=== PATIENT | female | born 1965 | race Caucasian/White ===

== ENCOUNTER 2017-07-23 14:36 | Inpatient (IN) | payer OTHER ==
[2017-07-23] MEDS: CEFTRIAXONE 1 GM/50 ML (PMX) 50 ML IVPB (15:26)
[2017-07-23 15:40] LABS: ADD MAN DIFF? NO
[2017-07-23] MEDS: SOD CHLORIDE 0.9% 1,000 ML IV (15:41)
[2017-07-23] MEDS: morphine 4 MG/ML VIAL IV (15:41)
[2017-07-23] MEDS: ONDANSETRON 4 MG INJ IV (15:41)
[2017-07-23 15:43] LABS: WHITE BLOOD COUNT 9.4 10^3/ul (4.8-10.8)
[2017-07-23 15:43] LABS: BASOPHILS % 0.4 % (0.0-2.0); EOSINOPHILS # 0.1 10^3/ul (0.0-0.5); EOSINOPHILS % 0.6 % (0.0-7.0); HEMATOCRIT 37.8 % (37.0-47.0); HEMOGLOBIN 12.4 g/dl (12.0-16.0); LYMPHOCYTES # 3.2 10^3/ul (0.8-2.9); LYMPHOCYTES % 34.4 % (15.0-51.0); MEAN CORPUSCULAR HEMOGLOBIN 28.8 pg (29.0-33.0); MEAN CORPUSCULAR HGB CONC 32.8 g/dl (32.0-37.0); MEAN CORPUSCULAR VOLUME 87.7 fl (82.0-101.0); MEAN PLATELET VOLUME 10.8 fl (7.4-10.4); MONOCYTE # 0.6 10^3/ul (0.3-0.9); MONOCYTES % 5.9 % (0.0-11.0); NEUTROPHIL # 5.5 10^3/ul (1.6-7.5); NEUTROPHILS % 58.4 % (39.0-77.0); PLATELET COUNT 276 10^3/UL (140-415); RED BLOOD COUNT 4.31 10^6/ul (4.20-5.40); RED CELL DISTRIBUTION WIDTH 16.7 % (11.5-14.5)
[2017-07-23 16:02] LABS: ALANINE AMINOTRANSFERASE 17 IU/L (13-69); ALBUMIN/GLOBULIN RATIO 1.14; ALKALINE PHOSPHATASE 63 IU/L (42-121); ANION GAP 14 (8-16); ASPARTATE AMINO TRANSFERASE 18 IU/L (15-46); BILIRUBIN,INDIRECT 0.3 mg/dl (0-1.1); BILIRUBIN,TOTAL 0.3 mg/dl (0.2-1.3); BLOOD UREA NITROGEN 12 mg/dl (7-20); CALCIUM 9.2 mg/dl (8.4-10.2); CARBON DIOXIDE 26 mmol/L (21-31); CHLORIDE 105 mmol/L (97-110); GLUCOSE 97 mg/dl (70-220); INR 1.01; LIPASE 157 U/L (23-300); POTASSIUM 3.5 mmol/L (3.5-5.1); PROTIME 13.4 Sec (11.9-14.9); SODIUM 141 mmol/L (135-144); TOTAL PROTEIN 7.5 g/dl (6.1-8.1)
[2017-07-23 16:03] LABS: PARTIAL THROMBOPLASTIN TIME 26.3 Sec (25.0-35.0)
[2017-07-23] MEDS: metroNIDAZOLE 500 MG/NS (PMX) 100 ML IVPB (16:05)
[2017-07-23 17:51] LABS: ADD UMIC YES; UR ASCORBIC ACID NEGATIVE (NEGATIVE); UR BACTERIA FEW /HPF (NONE SEEN); UR BILIRUBIN (Dip) NEGATIVE (NEGATIVE); UR BLOOD (Dip) 3+ mg/dL (NEGATIVE); UR CLARITY CLEAR (CLEAR); UR COLOR RED (YELLOW); UR GLUCOSE (Dip) NEGATIVE (NEGATIVE); UR KETONES (Dip) NEGATIVE (NEGATIVE); UR LEUKOCYTE ESTERASE (Dip) TRACE Leu/ul (NEGATIVE); UR NITRITE (Dip) NEGATIVE (NEGATIVE); UR RBC 89 /HPF (0-5); UR SPECIFIC GRAVITY (Dip) 1.006 (1.003-1.030); UR SQUAMOUS EPITHELIAL CELL MODERATE /HPF (FEW); UR TOTAL PROTEIN (Dip) 1+ mg/dl (NEGATIVE); UR UROBILINOGEN (Dip) NEGATIVE (NEGATIVE); UR WBC 137 /HPF (0-5)
[2017-07-23] MEDS ORDERED: ACETAMINOPHEN 1000MG/100ML IV 100 ML IVPB (20:00)
[2017-07-23] MEDS ORDERED: ACETAMINOPHEN (10 MG/ML) IV SYG IV* (20:00)
[2017-07-23] MEDS: D5W-0.45 NACL + KCL 20 MEQ 1,000 ML IV (20:42)
[2017-07-23] MEDS: morphine 2 MG INJ IV (20:46)
[2017-07-23] MEDS: PIPER-TAZO 3.375 GM IV (PMX) 100 ML IVPB (22:24)
[2017-07-23] MEDS: ZOLPIDEM 5 MG TAB PO (23:08)
[2017-07-24] MEDS: PIPER-TAZO 3.375 GM IV (PMX) 100 ML IVPB (05:40)
[2017-07-24] MEDS: D5W-0.45 NACL + KCL 20 MEQ 1,000 ML IV ×3 (06:00→22:10)
[2017-07-24 06:04] LABS: ADD MAN DIFF? NO
[2017-07-24 06:09] LABS: BASOPHILS % 0.7 % (0.0-2.0); EOSINOPHILS # 0.1 10^3/ul (0.0-0.5); EOSINOPHILS % 2.1 % (0.0-7.0); HEMATOCRIT 32.1 % (37.0-47.0); HEMOGLOBIN 10.5 g/dl (12.0-16.0); LYMPHOCYTES # 2.9 10^3/ul (0.8-2.9); LYMPHOCYTES % 51.4 % (15.0-51.0); MEAN CORPUSCULAR HEMOGLOBIN 28.5 pg (29.0-33.0); MEAN CORPUSCULAR HGB CONC 32.7 g/dl (32.0-37.0); MEAN CORPUSCULAR VOLUME 87.2 fl (82.0-101.0); MEAN PLATELET VOLUME 10.8 fl (7.4-10.4); MONOCYTE # 0.4 10^3/ul (0.3-0.9); MONOCYTES % 7.1 % (0.0-11.0); NEUTROPHIL # 2.2 10^3/ul (1.6-7.5); NEUTROPHILS % 38.5 % (39.0-77.0); PLATELET COUNT 230 10^3/UL (140-415); RED BLOOD COUNT 3.68 10^6/ul (4.20-5.40)
[2017-07-24 06:09] LABS: WHITE BLOOD COUNT 5.7 10^3/ul (4.8-10.8)
[2017-07-24 06:35] LABS: ALANINE AMINOTRANSFERASE 22 IU/L (13-69); ALBUMIN 2.8 g/dl (3.3-4.9); ALBUMIN/GLOBULIN RATIO 0.96; ALKALINE PHOSPHATASE 41 IU/L (42-121); ANION GAP 5 (8-16); ASPARTATE AMINO TRANSFERASE 23 IU/L (15-46); BILIRUBIN,INDIRECT 0.4 mg/dl (0-1.1); BILIRUBIN,TOTAL 0.4 mg/dl (0.2-1.3); BLOOD UREA NITROGEN 8 mg/dl (7-20); CALCIUM 7.8 mg/dl (8.4-10.2); CARBON DIOXIDE 26 mmol/L (21-31); CHLORIDE 112 mmol/L (97-110); CREATININE 0.56 mg/dl (0.44-1.00); GLUCOSE 93 mg/dl (70-220); POTASSIUM 3.9 mmol/L (3.5-5.1); SODIUM 139 mmol/L (135-144); TOTAL PROTEIN 5.7 g/dl (6.1-8.1)
[2017-07-24] MEDS ORDERED: LIDOCAINE 2% (SDV) 5 ML INJ (06:54)
[2017-07-24] MEDS ORDERED: PROPOFOL 20 ML (06:54)
[2017-07-24] MEDS ORDERED: DEXAMETHASONE 4 MG/ML 1 ML INJ (06:55)
[2017-07-24] MEDS ORDERED: ROCURONIUM 50 MG INJ ×2 (06:55→07:00)
[2017-07-24] MEDS ORDERED: ONDANSETRON 4 MG INJ (06:56)
[2017-07-24] MEDS ORDERED: FENTAnyl 50 MCG/ML VIAL (06:56)
[2017-07-24] MEDS ORDERED: SUGAMMADEX SODIUM 200 MG/2 ML VIAL IV (06:59)
[2017-07-24] MEDS ORDERED: CEFAZOLIN 1 GM INJ (07:01)
[2017-07-24] MEDS ORDERED: MIDAZOLAM 1 MG/ML 2 ML INJ (07:53)
[2017-07-24] MEDS: BUPIVACAINE 0.25%/EPI (MDV) 50 ML VIAL INJ (08:16)
[2017-07-24] MEDS: LIDOCAINE 1% (MPF) 30 ML INJ (08:17)
[2017-07-24] MEDS ORDERED: ROPIVACAINE 0.5 % 30 ML VIAL (09:35)
[2017-07-24] MEDS ORDERED: GLYCOPYRROLATE 1 MG INJ (09:57)
[2017-07-24] MEDS ORDERED: NEOSTIGMINE 3 MG/3 ML SYRINGE (09:57)
[2017-07-24] MEDS ORDERED: MEPERIDINE 25 MG INJ IV (10:30)
[2017-07-24] MEDS ORDERED: METOCLOPRAMIDE 10 MG INJ IV (10:30)
[2017-07-24] MEDS ORDERED: FENTAnyl 50 MCG/ML VIAL IV (10:30)
[2017-07-24] MEDS ORDERED: HYDROmorphONE 1 MG/5 ML IV SYRINGE IV (10:30)
[2017-07-24] MEDS ORDERED: DIPHENHYDRAMINE 50 MG INJ IV (10:30)
[2017-07-24] MEDS: HYDROmorphONE 1 MG/5 ML IV SYRINGE IV (10:54)
[2017-07-24] MEDS: ONDANSETRON 4 MG INJ IV ×2 (10:55→16:14)
[2017-07-24] MEDS: morphine 2 MG INJ IV ×2 (11:33→13:56)
[2017-07-24] MEDS: morphine LIQ (10 MG/5 ML) CUP PO ×2 (18:21→20:36)
[2017-07-24] MEDS: ZOLPIDEM 5 MG TAB PO (22:10)
[2017-07-25] MEDS: D5W-0.45 NACL + KCL 20 MEQ 1,000 ML IV ×3 (02:00→18:33)
[2017-07-25] MEDS: morphine LIQ (10 MG/5 ML) CUP PO ×2 (05:56→14:43)
[2017-07-25 06:17] LABS: ADD MAN DIFF? NO
[2017-07-25 06:29] LABS: BASOPHILS % 0.1 % (0.0-2.0); EOSINOPHILS % 0.1 % (0.0-7.0); HEMATOCRIT 34.7 % (37.0-47.0); HEMOGLOBIN 11.3 g/dl (12.0-16.0); MEAN CORPUSCULAR HEMOGLOBIN 28.4 pg (29.0-33.0); MEAN CORPUSCULAR HGB CONC 32.6 g/dl (32.0-37.0); MEAN CORPUSCULAR VOLUME 87.2 fl (82.0-101.0); MEAN PLATELET VOLUME 10.7 fl (7.4-10.4); MONOCYTE # 0.7 10^3/ul (0.3-0.9); MONOCYTES % 8.3 % (0.0-11.0); NEUTROPHIL # 6.2 10^3/ul (1.6-7.5); NEUTROPHILS % 69.2 % (39.0-77.0); PLATELET COUNT 262 10^3/UL (140-415); RED BLOOD COUNT 3.98 10^6/ul (4.20-5.40); RED CELL DISTRIBUTION WIDTH 17.2 % (11.5-14.5)
[2017-07-25 06:29] LABS: WHITE BLOOD COUNT 8.9 10^3/ul (4.8-10.8)
[2017-07-25 06:45] LABS: ANION GAP 10 (8-16); BLOOD UREA NITROGEN 3 mg/dl (7-20); CALCIUM 8.2 mg/dl (8.4-10.2); CARBON DIOXIDE 27 mmol/L (21-31); CHLORIDE 108 mmol/L (97-110); CREATININE 0.54 mg/dl (0.44-1.00); GLUCOSE 111 mg/dl (70-220); POTASSIUM 4.3 mmol/L (3.5-5.1); SODIUM 141 mmol/L (135-144)
[2017-07-26] MEDS: D5W-0.45 NACL + KCL 20 MEQ 1,000 ML IV ×2 (04:14→08:00)
[2017-07-26 05:49] LABS: WHITE BLOOD COUNT 8.6 10^3/ul (4.8-10.8)
[2017-07-26 05:49] LABS: ADD MAN DIFF? NO; BASOPHIL # 0.1 10^3/ul (0.0-0.1); BASOPHILS % 0.7 % (0.0-2.0); EOSINOPHILS # 0.1 10^3/ul (0.0-0.5); EOSINOPHILS % 1.5 % (0.0-7.0); HEMATOCRIT 33.8 % (37.0-47.0); HEMOGLOBIN 10.7 g/dl (12.0-16.0); LYMPHOCYTES # 4.6 10^3/ul (0.8-2.9); LYMPHOCYTES % 53.7 % (15.0-51.0); MEAN CORPUSCULAR HGB CONC 31.7 g/dl (32.0-37.0); MEAN CORPUSCULAR VOLUME 88.5 fl (82.0-101.0); MEAN PLATELET VOLUME 10.5 fl (7.4-10.4); MONOCYTE # 0.6 10^3/ul (0.3-0.9); MONOCYTES % 6.7 % (0.0-11.0); NEUTROPHIL # 3.2 10^3/ul (1.6-7.5); NEUTROPHILS % 37.1 % (39.0-77.0); PLATELET COUNT 244 10^3/UL (140-415); RED BLOOD COUNT 3.82 10^6/ul (4.20-5.40)
[2017-07-26 06:17] LABS: ALANINE AMINOTRANSFERASE 34 IU/L (13-69); ALBUMIN 3.3 g/dl (3.3-4.9); ALKALINE PHOSPHATASE 47 IU/L (42-121); ANION GAP 8 (8-16); ASPARTATE AMINO TRANSFERASE 27 IU/L (15-46); BILIRUBIN,INDIRECT 0.5 mg/dl (0-1.1); BILIRUBIN,TOTAL 0.5 mg/dl (0.2-1.3); BLOOD UREA NITROGEN 4 mg/dl (7-20); CALCIUM 8.4 mg/dl (8.4-10.2); CARBON DIOXIDE 29 mmol/L (21-31); CHLORIDE 110 mmol/L (97-110); CREATININE 0.58 mg/dl (0.44-1.00); GLUCOSE 84 mg/dl (70-220); POTASSIUM 4.7 mmol/L (3.5-5.1); SODIUM 142 mmol/L (135-144); TOTAL PROTEIN 6.6 g/dl (6.1-8.1)
[2017-07-26] MEDS: morphine LIQ (10 MG/5 ML) CUP PO (07:54)
== END 2017-07-26 16:40 | disposition home or self-care (01) | DRG 419 ==
LOC: MS2 07-24 18:20 → E/R 14:36 → MS2 16:54
PROC: 0FT44ZZ Resection of Gallbladder, Percutaneous Endoscopic Approach (ICD-10-PCS; principal; 2017-07-24 07:30)
DX: K80.00 Calculus of gallbladder with acute cholecystitis without obstruction (principal); E78.5 Hyperlipidemia, unspecified
CPT/HCPCS: 36415; 80048; 80053; 81001; 83690; 84703; 85025; 85610; 85730; 88304; 93005; 96374; 96375; 99285-25